=== PATIENT | female | born 1970 | race Caucasian/White ===

== ENCOUNTER 2020-06-22 18:44 | Emergency (ER) | payer BC ==
[~2020-06-22] VITALS: Ht 157.5 cm; Wt 81.9 kg
--- NOTE | 2020-06-22 19:06 | NUR ---
FIRST CONTACT WITH PT, PT IS VERY POOR HISTORIAN. IS TAKING CIPRO RX FROM A CLINIC FEW DAYS AGO BUT HAS NO IDEA WHY. STATES HAS FELT FEVERS AND CHILLS FOR SEVERAL DAYS. SPEAKS FULL SENTENCES. O2 SAT 96%RA. ON CONT PULSE OX. AWAITING ERP EVAL. WILL CONTINUE TO MONITOR. AIDET PROVIDED.
--- NOTE | 2020-06-22 20:17 | NUR ---
LABS PROCESSING, NO CHANGE IN ASSESSMENT. WILL CONTINUE TO MONITOR. AIDET PROVIDED.
[2020-06-22 20:27] LABS: BASOPHILS % (AUTO) 0 % (0-1); EOSINOPHILS % (AUTO) 0 % (1-7); LYMPHOCYTES % (AUTO) 21 % (22-44); MEAN CORPUSCULAR HEMOGLOBIN 29.5 pg (27.0-34.8); MEAN CORPUSCULAR HGB CONC 33.6 g/dL (32.4-35.8); MEAN PLATELET VOLUME 8.9 fL (7.4-10.4); MONOCYTES % (AUTO) 6 % (2-9); NEUTROPHILS % (AUTO) 73 % (42-75); PLATELET COUNT 334 x10^3/uL (130-400); RED BLOOD COUNT 4.93 x10^6/uL (3.82-5.3); RED CELL DISTRIBUTION WIDTH 12.9 % (9.6-15.2)
[2020-06-22 20:30] LABS: ALBUMIN 3.7 g/dL (3.4-5.0); ANION GAP 7 mmol/L (5-15); CALCIUM 9.2 mg/dL (8.5-10.1); CHLORIDE 105 mmol/L (98-107); CREATININE 1.01 mg/dL (0.55-1.02)
[2020-06-22 20:32] LABS: MD NO
[2020-06-22 21:20] LABS: MICROSCOPIC AUTO
[2020-06-22 21:41] VITALS: BP 135/88
--- NOTE | 2020-06-22 21:46 | NUR ---
VSS, DC HOME WITH INSTRUCT AND FU/ PT VERBALIZES UNDERSTANDING OF INSTRUCT, WILL RETURN TO ER IF WORSE OR CONCERNS.
== END 2020-06-22 21:48 | disposition home or self-care (01) ==
LOC: ED 20:59
DX: R50.9 Fever, unspecified (principal); R19.7 Diarrhea, unspecified; J02.9 Acute pharyngitis, unspecified
CPT/HCPCS: 36415; 80048; 81001; 82040; 85025; 87040; 99283